=== PATIENT | female | born 1985 | race Caucasian/White ===

== ENCOUNTER → 2017-03-05 | Outpatient (CLI) | payer OTHER ==
[2017-03-05 13:20] LABS: HCG, SERUM QUANTITATIVE 307 MIU/ML
== END ==
LOC: M LAB 11:09
DX: O03.4 Incomplete spontaneous abortion without complication (principal)
CPT/HCPCS: 84702

== ENCOUNTER 2018-04-03 19:01 | Inpatient (IN) | payer OTHER ==
[~2018-04-03] VITALS: Ht 152.4 cm; Wt 68.3 kg
[2018-04-03] VITALS (19 sets, daily range): BP systolic 97–134; BP diastolic 56–93
[2018-04-03] MEDS ORDERED: LR 1,000 ML IV SCH (19:33)
[2018-04-03] MEDS ORDERED: LACTATED RINGER'S 1000 ML IV ONE (19:45)
[2018-04-03] MEDS ORDERED: FENTANYL 2MCG/ML ROPIVACAINE 0.2% IN 0.9% NACL 100ML IVBAG As Ordered ONE (20:03)
[2018-04-03 20:13] LABS: HEMATOCRIT 40.6 % (36.0-47.0); MEAN CORPUSCULAR HEMOGLOBIN 30.8 pg (27.0-33.0); MEAN CORPUSCULAR HGB CONC 34.5 g/dl (32.0-36.5); MEAN CORPUSCULAR VOLUME 89.4 fl (80.0-96.0); PLATELET COUNT, AUTOMATED 263 10^3/uL (150-450); RED BLOOD COUNT 4.54 10^6/uL (4.00-5.40); WHITE BLOOD COUNT 14.5 10^3/uL (4.0-10.0)
[2018-04-03] MEDS ORDERED: ONDANSETRON 4MG/2ML VIAL (J2405) IV PRN (20:15)
[2018-04-03] MEDS ORDERED: EPIDURAL/PCA KEYS XX PRN (20:15)
[2018-04-03] MEDS ORDERED: REFRIGERATOR IV KEYS XX PRN (20:15)
[2018-04-03] MEDS ORDERED: diphenhydrAMINE INJ 50MG/ML VIAL (J1200) IV PRN (20:15)
[2018-04-03] MEDS ORDERED: LACTATED RINGER'S 1000 ML IV PRN (20:15)
[2018-04-03] MEDS ORDERED: EPIDURAL COMMENT XX SCH (20:15)
[2018-04-03] MEDS ORDERED: NALOXONE INJ 0.4 MG/1 ML VIAL (J2310) IV PRN (20:15)
[2018-04-03] MEDS ORDERED: ePHEDrine SULFATE 25 MG/5 ML(5MG/ML) SYRINGE IV PRN (20:15)
[2018-04-03] MEDS ORDERED: FENTANYL/ROPIVACAINE/NACL BAG 100 ML EPIDURAL SCH (20:15)
--- NOTE | 2018-04-03 22:04 | NUR ---
2200 reassessment post epidural vertex 9 cm arom clear 0 station category 1 safe to proceed
[2018-04-03] MEDS ORDERED: OXYTOCIN 30 UNITS IN 0.9% NaCl 500ML IV BAG (J2590) As Ordered ONE (23:38)
[2018-04-04] VITALS (8 sets, daily range): BP systolic 94–124; BP diastolic 55–85
[2018-04-04 00:14] LABS: CORD GAS ABE A -0.3; CORD GAS HCO3 A 28.1 MEQ/L; CORD GAS O2 SAT A 34.8 %; CORD GAS PCO2 A 61.8 mmHg; CORD GAS PH A 7.276 UNITS; CORD GAS PO2 A 18.5 mmHg; CORD GAS SBC A 22.7 MEQ/L
[2018-04-04 00:15] LABS: CORD GAS ABE V -0.1; CORD GAS HCO3 V 26.2 MEQ/L; CORD GAS O2 SAT V 65.5 %; CORD GAS PCO2 V 48.9 mmHg; CORD GAS PH V 7.347 UNITS; CORD GAS PO2 V 27.4 mmHg; CORD GAS SBC V 23.5 MEQ/L; CORD GAS TCO2 V 27.7 MEQ/L
[2018-04-04] MEDS ORDERED: OXYTOCIN DRIP 30 UNITS in APPROPRIATE DILUENT 1 EA IV SCH (00:35)
[2018-04-04] MEDS ORDERED: RHOGAM 300 MCG (1500 IU) INJ (J2790) IM SCH (00:45)
[2018-04-04] MEDS ORDERED: DOCUSATE SODIUM 100 MG CAP PO PRN (00:45)
[2018-04-04] MEDS ORDERED: ACETAMINOPHEN 500 MG TAB PO PRN (00:45)
[2018-04-04] MEDS ORDERED: METHYLERGONOVINE MALEATE 0.2 MG TAB PO PRN (00:45)
[2018-04-04] MEDS ORDERED: MOM 30ML SUSPENSION UDC PO PRN (00:45)
[2018-04-04] MEDS ORDERED: DIBUCAINE 1% OINTMENT 30GM TOP PRN (00:45)
[2018-04-04] MEDS ORDERED: ANUSOL HC CREAM 30GM TOP PRN (00:45)
[2018-04-04] MEDS ORDERED: OXYTOCIN INJ 10 UNITS/ML VIAL (J2590) IV ONE (00:45)
[2018-04-04] MEDS ORDERED: MEASLES,MUMPS,RUBELLA VACCINE INJ (MMR-II) (90707) SC SCH (00:45)
[2018-04-04] MEDS: IBUPROFEN 800 MG TAB PO PRN ×2 (05:24→18:26)
[2018-04-04] MEDS ORDERED: OXYTOCIN INJ 10 UNITS/ML VIAL (J2590) As Ordered ONE (08:15)
--- NOTE | 2018-04-04 09:36 | DN ---
DATE: 04/04/2018 This lady is a 6, para 2, who was admitted in spontaneous labor with epidural in place. Delivered over a previous episiotomy a live female weighing 7 pounds 10 ounces, 3470 grams, Apgars of 9 and 9 at one and five minutes respectfully. Placenta delivered spontaneously thereafter. Three-vessel and the cord, membranes and tissues intact. The episiotomy was repaired with #2-[address] The patient and the baby tolerated procedure well. The sphincter was intact. Uterus contracted well down on Pitocin.
--- NOTE | 2018-04-04 09:46 | IPN ---
DATE: 04/04/2018 day #1. This is a 33-year-old, 4, now para 3, who had spontaneous labor at term. Delivered a live female infant, 7 pounds 10 ounces, 3470 grams, of 9 and 9 at one and five minutes respectfully. Arterial pH 7.27, base excess -0.3; venous pH 7.34, base excess -0.1. She had a repair of her previous episiotomy. On her first day, we discussed phlebitis, cystitis, mastitis, endometritis, and cellulitis; diet, exercise and pain management; perineal, breast and wound care. Planning on using condoms for her method of control. Rest of the examination unremarkable. Normocephalic, atraumatic. Neck full range of motion. Pupils equal and reactive to light. Distal pulses symmetric. No evidence of deep vein thrombosis (DVT), pulmonary embolism (PE) or superficial phlebitis. Lungs are clear bilaterally at bases. No wheezes or rhonchi. No costovertebral angle (CVA) tenderness. Uterus two below. Lochia is moderate. Four quadrant bowel sounds are noted. No rashes, lesions or pruritus. No arthralgia or myalgia. No joint pain. No complaint of cough, wheeze, shortness of breath or dyspnea on exertion. Not bleeding. Neuro complete. No incontinency or frequency. No nausea, vomiting, diarrhea or constipation. No diabetic issues. The patient is planning on discharge for tomorrow morning. Medications will be dispensed and a 6-week checkup will be made. On admission, her hemoglobin was 14.0, hematocrit 40.6 and platelets were 263. Her vital signs this morning are blood pressure 94/55, respirations 18, pulse 80, and temperature is 96.7. The patient is breast-feeding and doing well.
--- NOTE | 2018-04-04 09:48 | HPE ---
DATE OF ADMISSION: 04/03/2018 This is a 33-year-old, 4, para 2, abortus 1, last menstrual period (LMP) 06/23/2017, estimated date of confinement (EDC) 03/30/2018, at 40 and 4, in an active labor, 6 cm, 100% effaced, zero station with contractions. 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 She has a very strong family history of cancer. PAST HISTORY: December 2013, at 40 weeks, spontaneous vaginal delivery, female, 7 pounds 15 ounces. October 2015, at 40 weeks, spontaneous vaginal delivery, male, 9 pounds 9 ounces. February 2017, at 12 weeks, spontaneous . Labs are B+, HIV negative, hepatitis negative, RPR negative, rubella immune, Varicella immune. Pap normal. Urine is mixed fabiola. Gonorrhea and chlamydia are negative. 1-hour glucose 78. GBS negative. Blood pressure 134/93, respirations 18, pulse 93, and temperature is 98.0. The patient appears in distress. Symphysis fundus height is 40, vertex OT. Pelvic examination: 100% effaced, 6 cm dilated, bulging membrane, zero station. No vaginal blood loss or bleeding. The rest the examination unremarkable. She has a category 1 strip. Normocephalic, atraumatic. Neck full range of motion. Pupils equal and reactive to light. Distal pulses symmetric. No evidence of deep venous thrombosis (DVT), pulmonary embolism (PE) or superficial phlebitis. Chest is clear bilaterally bases. No wheezes or rhonchi. No costovertebral angle (CVA) tenderness. Four quadrant bowel sounds are noted. She has no rashes, lesions or pruritus. No arthralgia or myalgia. No complaint of joint pain. No complaint of cough, wheeze, shortness of breath or dyspnea on exertion. She has no infections, not bruising, not bleeding. Neuro complete. No incontinency, urgency or frequency. No nausea, vomiting, diarrhea or constipation. No diabetic issues. 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 Pap smear is normal. The family history is very strong for cancers, multiple types of cancer. She does not smoke, drink, abuse drugs. No domestic violence. to a soldier and a good support system. We discussed vaginal delivery. Delivery of the baby through the vagina, possible assistance with forceps or vacuum if needed maternal for indications forceps or vacuum devices we can assist with vaginal delivery with normal pushing efforts, cannot achieve delivery on their own or when delivery is needed in emergency for baby's well-being. Medications may be required to induce or augment labor, in order to vaginal delivery episiotomy may or may not be indicated or required for your baby to deliver vaginally. You may also require repair of lacerations or tears of the vagina or vulva are caused by delivery in some cases emergencies can occur that require emergency section so quickly there may not be time for consenting, however physician will discuss with you the reasons and risks, which are only done for maternal or indications, especially since delivery may be required to be expedited because it is better for baby and mother. The risk of vaginal delivery include but are not limited to bleeding, infection, injury to vagina, pelvic structures, injury to baby, damage to the uterus, reaction to anesthesia, uterine rupture, remote hysterectomy, remote blood transfusion, medication may be used again to induce or augment to increase potential chance for vaginal delivery. There is a risk of hemorrhage and lacerations or tears, urinary or bowel incontinence. Risk of use of forceps may increase scratches, hematomas on the head or intracranial bleed of the baby. The fact that the patient had a previous macrosomic infant leads to a high risk of hemorrhage and structural abnormalities. This baby appears to be within normal range of weight and we are not anticipating any potential shoulder dystocia. The patient and understand the risks and benefits and are willing to proceed.
[2018-04-04] MEDS: PRENATAL VITAMINS CHEWABLE TABLET PO SCH (09:59)
--- NOTE | 2018-04-05 04:57 | IPNPDOC ---
Text Note Date of Service The patient was seen on 04/05/18. NOTE PPD1 States feeling well, pain controlled with prescribed meds. Baby bonding and feeding well. No heavy VB. Lochia slowing. Ambulating and voiding well. Tolerating PO without issues. VSSAF NAD A&O RRR CTAB LE no C/C/E Ut at U-2, firm a/p: Doing well. Cont routine care. D/C today. Sessions VS,Falguni, I+O VSFalguni, I+O Vital Signs Date Time Temp Pulse Resp B/P (MAP) Pulse Ox O2 Delivery O2 Flow Rate FiO2 04/04/18 18:04 98.3 64 16 106/55 (72) 97 SESSIONS,NIMA Vila MD Apr 05, 2018 04:57
[2018-04-05 06:00] VITALS: BP 102/55
[2018-04-05 07:06] LABS: HEMATOCRIT 38.4 % (36.0-47.0); HEMOGLOBIN 12.7 g/dl (12.0-15.5); MEAN CORPUSCULAR HEMOGLOBIN 30.5 pg (27.0-33.0); MEAN CORPUSCULAR HGB CONC 33.1 g/dl (32.0-36.5); MEAN CORPUSCULAR VOLUME 92.1 fl (80.0-96.0); PLATELET COUNT, AUTOMATED 223 10^3/uL (150-450); RED BLOOD COUNT 4.17 10^6/uL (4.00-5.40); WHITE BLOOD COUNT 11.6 10^3/uL (4.0-10.0)
[2018-04-05] MEDS: IBUPROFEN 800 MG TAB PO PRN (07:52)
[2018-04-05] MEDS: PRENATAL VITAMINS CHEWABLE TABLET PO SCH (07:52)
[2018-04-05] MEDS ORDERED: IBUP-1114 PO (10:01)
[2018-04-05] MEDS ORDERED: MAPA500T2 PO (10:01)
[2018-04-05] MEDS ORDERED: DIBU10OI TOP (10:01)
[2018-04-05] MEDS ORDERED: PRENTAB9 PO (10:01)
[2018-04-05] MEDS ORDERED: COLA100C5 PO (10:01)
== END 2018-04-05 11:50 | disposition home or self-care (01) | DRG 833 ==
LOC: M LDO 19:01 → M LDI 19:33 → M OBS 04-04 02:25
PROVIDERS: ADMIT Obstetrics & Gynecology; ATTEND Obstetrics & Gynecology
PROC: 0W8NXZZ Division of Female Perineum, External Approach (ICD-10-PCS; principal; 2018-04-04)
DX: O48.0 Post-term pregnancy (principal); Z37.0 Single live birth; Z3A.40 40 weeks gestation of pregnancy; Z85.43 Personal history of malignant neoplasm of ovary

== ENCOUNTER 2019-04-22 02:16 | Emergency (ER) | payer OTHER ==
[~2019-04-22] VITALS: Ht 152.4 cm; Wt 50.5 kg
[~2019-04-22 02:16] MED LIST: COLA100C5 PO; DIBU10OI TOP; IBUP-1114 PO; MAPA500T2 PO; PRENTAB9 PO
[2019-04-22 02:52] LABS: BASO % 0.2 % (0.0-1.0); HEMOGLOBIN 15.3 g/dl (12.0-15.5); LYMPH % 2.3 % (24.0-44.0); MEAN CORPUSCULAR HEMOGLOBIN 29.1 pg (27.0-33.0); MEAN CORPUSCULAR HGB CONC 32.6 g/dl (32.0-36.5); MEAN CORPUSCULAR VOLUME 89.5 fl (80.0-96.0); MONO # 0.6 10^3/uL (0.0-0.8); MONO % 5.9 % (0.0-5.0); NEUTROPHILS # 8.7 10^3/uL (1.5-8.5); NEUTROPHILS % 91.4 % (36.0-66.0); PLATELET COUNT, AUTOMATED 267 10^3/uL (150-450); RED BLOOD COUNT 5.25 10^6/uL (4.00-5.40); WHITE BLOOD COUNT 9.5 10^3/uL (4.0-10.0)
[2019-04-22] MEDS ORDERED: ONDANSETRON 4MG/2ML VIAL (J2405) IV ONE (03:15)
[2019-04-22] MEDS ORDERED: NS 1,000 ML IV ONE ×2 (03:15→04:45)
[2019-04-22 03:16] LABS: ALBUMIN 4.6 GM/DL (3.2-5.2); BILIRUBIN,DIRECT 0.2 MG/DL (0.0-0.2); BILIRUBIN,TOTAL 0.7 MG/DL (0.2-1.0); LYMPH # 0.2 10^3/uL (1.5-5.0); TOTAL PROTEIN 7.9 GM/DL (6.4-8.2)
[2019-04-22 04:07] LABS: INFLUENZA A AMPLIFICATION NEGATIVE (NEGATIVE); INFLUENZA B AMPLIFICATION NEGATIVE (NEGATIVE)
[2019-04-22 05:43] VITALS: BP 102/55
[2019-04-22] MEDS ORDERED: ONDA4TAB6 PO (06:31)
== END 2019-04-22 06:44 | disposition home or self-care (01) ==
LOC: M ED 02:16
DX: K52.9 Noninfective gastroenteritis and colitis, unspecified (principal); E86.0 Dehydration
CPT/HCPCS: 80047; 80076; 83690; 84702; 85025; 87502; 96361; 96374; 99284; J2405